=== PATIENT | female | born 2000 | race Caucasian/White ===

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

== ENCOUNTER → 2019-11-27 | Outpatient (CLI) | payer OTHER ==
--- NOTE | 2019-12-01 06:50 | MR ---
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 Swo llen right eyelid, F/U comparison to prior MRI 07-11-17 Technique: Multiplanar, multisequence images of the orbits were obtained before and after administrat ion of 6.5 mL intravenous Gadavist gadolinium contrast. FINDINGS: Midline sagittal images demonstrate the craniocervical junction to be normal. The ventricles are of normal caliber. Postcontrast images again show multiple tributary veins coursing within the right tem poral lobe. The optic nerves are symmetrical bilaterally. There is no enlargement of extraocular muscles of orbits. There is redemonstrated multiseptated cystic lesion along the superomedial aspect of the anterior rig ht orbit. This measures up to 2.4 cm AP by 1.3 cm wide by 1.8 cm craniocaudal. This is in comparison to 07/06/2015 where it measured 2.5 cm AP by 1.2 cm wide by 1.9 cm craniocaudal. Overall measurements are not significantly changed. No significant enhancing components. Again, the lesion is primarily extraconal abutting the medial wa ll of the anterior orbit and the medial aspect of the globe but with a small, 6 mm intraconal extensi on along the distal inner margin of the medial rectus muscle, draping along the superior margin of th e medial rectus. No other preseptal or post septal orbital abnormality is not detected. Sella and cavernous sinuses appear normal. Aside from some scattered trace mucosal thickening in the ethmoid air cells, the paranasal sinuses ar e normal. IMPRESSION: 1. Stable, nonenhancing, multiseptated cystic lesion along the anterior medial right orbit measuring 2.4 x 1.3 x 1.8 cm (versus 2.5 x 1.2 x 1.9 cm on 07/06/2015), not significantly changed. A lymphatic ma lformation is considered. Again, this is primarily extraconal with a small 6 mm intraconal extension. 2. Redemonstrated right temporal lobe DVA.
== END | disposition home or self-care (01) ==
LOC: RADMRIMAIN 11:50
PROVIDERS: ATTEND Radiology Vascular & Interventional Radiology
DX: Q27.9 Congenital malformation of peripheral vascular system, unspecified (principal); H05.89 Other disorders of orbit
CPT/HCPCS: 70543; A9585

== ENCOUNTER 2023-03-20 12:50 | Outpatient (CLI) | payer OTHER ==
[2023-03-20 15:10] VITALS: BP 111/63; PULSE 80; RESP 16; TEMP 98.1
== END 2023-03-20 15:16 ==
LOC: FBPOP 12:50
PROVIDERS: ATTEND Obstetrics & Gynecology
DX: Z53.9 Procedure and treatment not carried out, unspecified reason (principal)
CPT/HCPCS: 59025; 82731; 99213

== ENCOUNTER 2023-04-07 23:50 | Outpatient (CLI) | payer OTHER ==
[2023-04-08 00:59] LABS: Bacteria,Urine Occasional /hpf; Mucus,Urine Many /hpf; RBC,Urine <1 /hpf (0-5); Squamous Epithelial Cell,Urine 1 /hpf (0-4); WBC,Urine 1 /hpf (0-5)
[2023-04-08 01:00] LABS: Appearance,Urine Slightly Cloudy (Clear); Color,Urine Light Orange; PH, Urine 6.5 (5.0-8.0)
[2023-04-08 01:01] LABS: Bilirubin,Urine 1+ (Negative); Blood,Urine Negative (Negative); Glucose,Urine (UA) Negative (Negative); Ketones,Urine Negative (Negative); Leukocyte Esterase,Urine Moderate (Negative); Nitrite,Urine Negative (Negative); Protein,Urine 1+ (Negative)
[2023-04-08 02:06] VITALS: BP 113/75; PULSE 91; RESP 16; TEMP 96.7
--- NOTE | 2023-04-09 07:35 | P.MSEPDOC ---
Presenting Problems - Arrival Data Date of Arrival on Unit: 04/08/23 Time of Arrival on Unit: 23:50 Mode of Transport: Wheelchair - Complaint OB-Reason for Admission/Chief Complaint: Possible Onset of Labor, Pain Comment: patient presents to triage with complaints of low back pain rating 8/10 and contractions Medical History - Information : 2 Para: 1 Term: 1 : 0 Abortions: Spontaneous or Elective: 0 Number of Living Children: 1 - Gestational Age Gestational Age by ALEN (wks/days): 33 Weeks and 1 Days Review of Systems - Review of Systems Constitutional: No problems Breast: No problems ENT: No problems Cardiovascular: No problems Respiratory: No problems Gastrointestinal: No problems Genitourinary: No problems Musculoskeletal: No problems Neurological: No problems Skin: No problems Vital Signs - Temperature Temperature: 96.7 F Temperature Source: Temporal Artery Scan - Pulse Pulse Oximetery Pulse Rate: 91 Pulse Assessment Method: Pulse Oximetry - Respirations Respiratory Rate: 16 Oxygen Delivery Method: Room Air O2 Sat by Pulse Oximetry: 96 - Blood Pressure Right Arm Blood Pressure: 113/75 Blood Pressure Mean: 87 Blood Pressure Source: Automatic Cuff Physician Notification - Physician Notified Physician Notified Date: 04/08/23 Physician Notified Time: 00:24 Physician: Jazmyn Blair Maternal Triage Index - Maternal Triage Index Presenting for scheduled procedure w/no complaint: No - Stat/Priority 1 Stat Priority 1: No - Urgent/Priority 2 Urgent Priority 2: Yes Provider Notified: Jazmyn Blair Provider Notified Time: 00:24 Criteria Met for Priority 2: patient presents to triage with low back pain and contractions Disposition - Disposition OB Disposition: Discharge to home I agree with the RN Medical Screening Exam: Yes Case reviewed; plan agreed upon as documented in EMR&OBIX.: Yes Diagnosis: FALSE LABOR BEFORE 37 COMPLETED WEEKS OF GEST, THIRD TRI
== END 2023-04-08 01:47 ==
LOC: FBPOP 23:50
PROVIDERS: ATTEND Obstetrics & Gynecology
DX: O47.03 False labor before 37 completed weeks of gestation, third trimester (principal); Z3A.33 33 weeks gestation of pregnancy
CPT/HCPCS: 59025; 81001; 99213

== ENCOUNTER 2023-05-05 15:16 | Inpatient (IN) | payer OTHER ==
[2023-05-05] MEDS ORDERED: OXYTOCIN 10 UNIT/ML 1 ML VIAL IM PRN (15:40)
[2023-05-05] MEDS ORDERED: TRANEXAMIC 1,000 MG/100ML-NACL 1,000 MG in EMPTY BAG 1 BAG IV PRN (15:40)
[2023-05-05] MEDS ORDERED: LIDOCAINE 0.5% (PF) 5 MG/ML (50 ML SDV) SQ PRN (15:40)
[2023-05-05] MEDS ORDERED: miSOPROStoL 200 MCG TAB PO PRN (15:40)
[2023-05-05] MEDS ORDERED: METHYLERGONOVINE 0.2 MG/ML 1 ML AMP IM PRN (15:40)
[2023-05-05] MEDS ORDERED: TERBUTALINE 1 MG/ML VIAL SQ PRN (15:40)
[2023-05-05] MEDS ORDERED: CARBOPROST TROMETHAMINE 250 MCG/ML 1 ML AMP IM PRN (15:40)
[2023-05-05 15:56] LABS: Basophils % (A) 0 %; Eosinophils # (A) 0.1 k/uL (0-0.7); Eosinophils % (A) 1 %; HGB 12.3 gm/dL (11.4-16.0); Lymphocytes # (A) 2.8 k/uL (1.0-4.8); Lymphocytes % (A) 35 %; MCHC 33.3 g/dL (31.0-37.0); MCV 84.2 fL (80.0-100.0); Mean Platelet Volume 11.1; Monocytes # (A) 0.3 k/uL (0-1.0); Monocytes % (A) 4 %; Neutrophils # (A) 4.7 k/uL (1.3-7.7); Neutrophils % (A) 59 %; Platelet Count 176 k/uL (150-450); RBC 4.39 m/uL (3.80-5.40); RDW 13.4 % (11.5-15.5)
[2023-05-05] MEDS ORDERED: AMPICILLIN 2,000 MG in SODIUM CHLORIDE 0.9% 100 ML IVPB STA (16:12)
--- NOTE | 2023-05-05 16:15 | P.HPOB ---
History of Present Illness H&P Date: 05/05/23 Chief Complaint: Contractions, vaginal bleeding This patient is a pleasant 24-year-old 2 para 1 female estimated date of confinement 05/26/2023 estimated gestational age 37-0/7 weeks who presents to labor and delivery with complaints of contractions and started earlier today and some vaginal bleeding that started on her arrival to the hospital. Patient's care is per Dr. Lind appears to be uncomplicated. Patient was having contractions and then in the parking lot of the hospital had a gush of fluid that was for water and noticed it was copious amount of blood. heart tones are category 1. Cervix is 3 cm dilated and artificial rupture membranes shows clear bloody fluid. There is also approximately 4 cm dark clot associated with her exam Review of Systems Genitourinary: Reports Menstruation: Reports as per HPI Past Medical History Past Medical History: No Reported History History of Any Multi-Drug Resistant Organisms: None Reported Past Surgical History: No Surgical Hx Reported Past Anesthesia/Blood Transfusion Reactions: No Reported Reaction Past Psychological History: Depression Smoking Status: Never smoker Past Alcohol Use History: None Reported Past Drug Use History: None Reported - Past Family History Father Family Medical History: No Reported History Medications and Allergies Home Medications Medication Instructions Recorded Confirmed Type Vit No.179/Iron/Folic 1 tab PO DAILY 03/20/23 05/05/23 History [ Tablet] Sertraline [Zoloft] 1 tab PO DAILY 03/20/23 05/05/23 History Allergies Allergy/AdvReac Type Severity Reaction Status Date / Time No Known Allergies Allergy Verified 05/05/23 15:38 Exam Vital Signs Temp Pulse Resp BP 05/05/23 15:46 96.6 F L 95 16 123/84 Intake and Output 05/05/23 05/05/23 05/05/23 06:59 14:59 22:59 Other: Weight 87.09 kg - OBG Physical Exam Abdomen: bowel sounds normal, no diffuse tenderness, no bruit present, no guarding noted, no hepatomegaly, no splenomegaly, no mass Vulva: both: normal Cervix: no lesion (Cervix is 3 simmers dilated percent effaced -2 station), no discharge Uterus: enlarged Results labs show she is O positive, rubella immune, RPR is nonreactive, hepatitis B and C are negative, ultrasounds per Dr. Lind's notes appear normal. Group B strep is unknown because the patient missed her last appointment. Result Diagrams: 05/05/23 15:44 Assessment and Plan Assessment: This is a pleasant 24-year-old 2 para 1 female 37-0/7 weeks gestation with onset of contractions and new onset of vaginal bleeding. Examination and evaluation is consistent with probable placental abruption. At this time heart tones are category 1 and therefore I discussed continuing with labor. If however there is any concern about well-being will proceed with immediate section for delivery. Group B strep status is unknown therefore we'll treat her prophylactically with antibiotics. I discussed this treatment plan with the patient and her partner and they understand and all questions are answered. (1) 37 weeks gestation of Current Visit: Yes Status: Acute Code(s): Z3A.37 - 37 WEEKS GESTATION OF SNOMED Code(s): 75119125 (2) Vaginal bleeding Current Visit: Yes Status: Acute Code(s): N93.9 - ABNORMAL UTERINE AND VAGINAL BLEEDING, UNSPECIFIED SNOMED Code(s): 066715210 (3) Normal labor Current Visit: Yes Status: Acute Code(s): O80 - ENCOUNTER FOR FULL-TERM UNCOMPLICATED DELIVERY; Z37.9 - OUTCOME OF DELIVERY, UNSPECIFIED SNOMED Code(s): 04135197
[2023-05-05] MEDS: LACTATED RINGERS 1,000 ML IV SCH ×2 (16:21→17:50)
[2023-05-05] MEDS ORDERED: SODIUM CHLORIDE 0.9% 250 ML BAG ONE (17:13)
[2023-05-05] MEDS ORDERED: ROPIVACAINE 5 MG/ML 30 ML VIAL ONE (17:13)
[2023-05-05] MEDS ORDERED: fentaNYL (PF) 50 MCG/ML 5 ML AMP ONE (17:13)
--- NOTE | 2023-05-05 19:16 | P.PROBDLV ---
Vaginal Delivery Note - . Vaginal Delivery Note: Spontaneous vaginal delivery viable female Apgars 8 and 9 delivery time is 1901 hrs. Please see dictated H&P for intimate details of this patient's admission. Brief summary this is a pleasant 24-year-old 2 para 1 female 37-0/7 weeks gestation admitted earlier this evening with contractions and vaginal bleeding. heart tones are category 1 and artificial rupture membranes was done at 3 cm for the amniotic fluid. Evaluation is consistent with placental abruption although patient is in active labor and heart tones were reassuring. Patient quickly got to 5 cm dilated and then has an epidural placed with good relief. Patient quickly thereafter progresses and gets to complete. With one push she pushes the head over the intact perineum in a controlled fashion. Mouth and nares are bulb suctioned. Infant is straight occiput anterior presentation. There is a nuchal cord which is easily reduced. With gentle downward traction we have delivery anterior posterior shoulder and rest this 's body. This is a vigorous viable female Apgars are 8 and 9 delivery time is 19 and 1 hours. After delivery of the infant the is laid on the mother's abdomen. After the cord is done pulsating is doubly clamped and cut. The placenta is then spontaneously delivered intact. The placenta has old meconium staining. There is a small area at the edge where there is a blood clot consistent with a partial abruption. This abruption as less than 5%. Inspection of the perineum shows a first-degree laceration which is repaired with 3-0 Vicryl usual fashion. Excellent reapproximation is noted. Estimated blood loss is 100 mL. There are no complications. Infant and mother are stable delivery room.
[2023-05-05] MEDS ORDERED: HYDROCORTISONE 2.5% RECTAL CREAM 30 GM TUBE RECTAL PRN (19:18)
[2023-05-05] MEDS ORDERED: SIMETHICONE 80 MG CHEWABLE PO PRN (19:18)
[2023-05-05] MEDS ORDERED: diphenhydrAMINE 50 MG/ML 1 ML VIAL IVP PRN (19:18)
[2023-05-05] MEDS ORDERED: diphenhydrAMINE 25 MG CAP PO PRN (19:18)
[2023-05-05] MEDS ORDERED: bisacodyL 10 MG SUPP RECTAL PRN (19:18)
[2023-05-05] MEDS ORDERED: LANOLIN CREAM 5 GM TUBE TOPICAL PRN (19:18)
[2023-05-05] MEDS ORDERED: BENZOCAINE/MENTHOL SPRAY 1 GM/SPRAY AEROSOL TOPICAL PRN (19:18)
[2023-05-05] MEDS ORDERED: ZOLPIDEM 5 MG TAB PO PRN (19:18)
[2023-05-05] MEDS ORDERED: OXYTOCIN 30 UNITS/500 ML NS 30 UNIT in SALINE 1 500ML.BAG IV SCH (19:30)
[2023-05-05] MEDS: IBUPROFEN 600 MG TAB PO PRN (19:51)
[2023-05-05] MEDS ORDERED: AMPICILLIN 1,000 MG in SODIUM CHLORIDE 0.9% 50 ML IVPB SCH (20:15)
[2023-05-05] MEDS: SENNOSIDES-DOCUSATE SODIUM 1 EACH TAB PO SCH (20:42)
[2023-05-05] MEDS: ACETAMINOPHEN TAB 325 MG TAB PO PRN (23:35)
[2023-05-06] MEDS: IBUPROFEN 600 MG TAB PO PRN ×4 (04:10→23:11)
--- NOTE | 2023-05-06 07:10 | P.PNOBGVD ---
Subjective - Subjective Patient reports: Reports appetite normal, Reports voiding normally, Reports pain well controlled, Reports ambulating normally : doing well Objective - Latest Vital Signs Latest vital signs: Vital Signs Temp Pulse Resp BP 05/06/23 02:56 98.2 F 78 18 142/56 05/06/23 00:00 97.8 F 81 16 125/74 05/05/23 21:06 96.5 F L 87 17 137/81 05/05/23 20:36 71 17 137/83 05/05/23 20:06 96.1 F L 67 17 140/83 05/05/23 19:51 78 17 132/91 05/05/23 19:36 64 17 121/80 05/05/23 19:21 68 16 120/74 05/05/23 19:06 97.0 F L 68 17 127/82 05/05/23 15:46 96.6 F L 95 16 123/84 Intake and Output 05/05/23 05/06/23 05/06/23 22:59 06:59 14:59 Intake Total 1172.567 Output Total 750 Balance 422.567 Intake: IV 1000 Intake, IV Titration 172.567 Amount Oxytocin 30 Units/500 ml 172.567 Ns 30 unit In Saline 1 500ml.bag @ Per Protocol IV .Q0M [facility] Rx#:[id number] Output: Urine 650 Estimated Blood Loss 100 Other: # Voids 1 2 Weight 87.09 kg - Exam Lungs: bilateral: normal Chest: Normal S1, Normal S2 Extremities: Present: normal Abdomen: Present: normal appearance, soft Uterus: Present: normal, firm Assessment and Plan Assessment: day #1. Patient is resting without new complaints. Vital signs are stable and she is afebrile. Uterus is firm nontender and she is having normal lochia. CBC is pending. Patient's baby had cultures drawn and needs to stay for 48 hours until the results of these cultures because of unknown group B strep status and she received less than 4 hours of antibiotics in labor. Therefore, patient will stay today and be discharged home tomorrow. Plan today is to continue routine care and check a CBC. (1) 37 weeks gestation of Current Visit: Yes Status: Acute Code(s): Z3A.37 - 37 WEEKS GESTATION OF SNOMED Code(s): 30172385 (2) Vaginal bleeding Current Visit: Yes Status: Acute Code(s): N93.9 - ABNORMAL UTERINE AND VAGINAL BLEEDING, UNSPECIFIED SNOMED Code(s): 501102350 (3) Normal labor Current Visit: Yes Status: Acute Code(s): O80 - ENCOUNTER FOR FULL-TERM UNCOMPLICATED DELIVERY; Z37.9 - OUTCOME OF DELIVERY, UNSPECIFIED SNOMED Code(s): 23245628
[2023-05-06 07:13] LABS: Basophils % (A) 0 %; Eosinophils % (A) 0 %; HCT 34.7 % (34.0-46.0); HGB 11.8 gm/dL (11.4-16.0); Lymphocytes # (A) 2.1 k/uL (1.0-4.8); Lymphocytes % (A) 22 %; MCH 28.6 pg (25.0-35.0); Mean Platelet Volume 11.6; Monocytes # (A) 0.5 k/uL (0-1.0); Monocytes % (A) 5 %; Neutrophils # (A) 6.5 k/uL (1.3-7.7); Neutrophils % (A) 71 %; Platelet Count 152 k/uL (150-450); RBC 4.13 m/uL (3.80-5.40); RDW 13.2 % (11.5-15.5); WBC 9.2 k/uL (3.8-10.6)
[2023-05-06] MEDS: ACETAMINOPHEN TAB 325 MG TAB PO PRN ×3 (07:45→18:44)
[2023-05-06 08:26] LABS: RBC Morphology Normal
[2023-05-06] MEDS: SENNOSIDES-DOCUSATE SODIUM 1 EACH TAB PO SCH ×2 (10:46→23:13)
[2023-05-06 23:36] VITALS: RESP 18
[2023-05-07] MEDS: ACETAMINOPHEN TAB 325 MG TAB PO PRN (03:32)
[2023-05-07] MEDS: IBUPROFEN 600 MG TAB PO PRN ×2 (06:03→12:12)
--- NOTE | 2023-05-07 08:33 | P.DS ---
Providers Date of admission: 05/05/23 15:28 Expected date of discharge: 05/07/23 Attending physician: Corrine Lind Primary care physician: Stated None - Discharge Diagnosis(es) (1) Status post normal vaginal delivery Current Visit: Yes Status: Acute Hospital Course: Presented in active labor with some vaginal bleeding. She underwent a normal vaginal delivery. course was uneventful. She denies nausea, vomiting, chest pain, shortness of breath or calf pain. Patient will be discharged home day #2 in stable condition to follow-up with me in 6 weeks. Plan - Discharge Summary New Discharge Prescriptions: New Ibuprofen [Motrin] 600 mg PO Q6HR PRN #30 tab PRN Reason: Mild Pain Or Fever >= 100.5 No Action Vit No.179/Iron/Folic [ Tablet] 1 tab PO DAILY Sertraline [Zoloft] 1 tab PO DAILY Discharge Medication List Vit No.179/Iron/Folic [ Tablet] 1 tab PO DAILY 03/20/23 [History] Sertraline [Zoloft] 1 tab PO DAILY 03/20/23 [History] Ibuprofen [Motrin] 600 mg PO Q6HR PRN #30 tab 05/07/23 [Rx] Follow up Appointment(s)/Referral(s): Corrine Lind DO [Doctor of Osteopathic Medicine] - 6 Weeks Discharge Disposition: HOME SELF-CARE
[2023-05-07 08:37] VITALS: BP 128/80; PULSE 94; TEMP 98.1
[2023-05-07] MEDS: SENNOSIDES-DOCUSATE SODIUM 1 EACH TAB PO SCH (09:47)
== END 2023-05-07 16:30 | disposition home or self-care (01) | DRG 807 ==
LOC: FBPOP 15:16 → 4FBP 15:28
PROVIDERS: ADMIT Obstetrics & Gynecology; ATTEND Obstetrics & Gynecology
PROC: 10E0XZZ Delivery of Products of Conception, External Approach (ICD-10-PCS; principal; 2023-05-05)
PROC: 0HQ9XZZ Repair Perineum Skin, External Approach (ICD-10-PCS; 2023-05-05)
DX: O80 Encounter for full-term uncomplicated delivery (principal); Z37.0 Single live birth; O45.93 Premature separation of placenta, unspecified, third trimester; O69.81X0 Labor and delivery complicated by cord around neck, without compression, not applicable or unspecified; O70.0 First degree perineal laceration during delivery; O99.344 Other mental disorders complicating childbirth; F32.A Depression, unspecified; Z3A.37 37 weeks gestation of pregnancy
CPT/HCPCS: 85025; 86850; 86900; 86901